=== PATIENT | female | born 1985 | race Caucasian/White ===

== ENCOUNTER → 2020-04-01 | Outpatient (CLI) | payer BC | LOC: COL.RAD 11:50 | DX: N93.9 Abnormal uterine and vaginal bleeding, unspecified (principal) ==

== ENCOUNTER 2020-08-16 23:02 | Emergency (ER) | payer BC ==
[~2020-08-16] VITALS: Ht 162.6 cm; Wt 68.2 kg
[2020-08-16 23:10] VITALS: TEMP 98.6
[2020-08-16] MEDS ORDERED: PERCOCET 325 MG1 TA2 PO (23:35)
[2020-08-16 23:52] VITALS: BP 132/66; PULSE 75
== END 2020-08-16 23:52 | disposition home or self-care (01) ==
LOC: COL.ER 23:02
DX: S82.61XA Displaced fracture of lateral malleolus of right fibula, initial encounter for closed fracture (principal); W19.XXXA Unspecified fall, initial encounter